=== PATIENT | female | born 1965 | race Caucasian/White ===

== ENCOUNTER 2020-03-25 05:25 | Emergency (ER) | payer OTHER ==
[~2020-03-25] VITALS: Ht 160 cm; Wt 63.5 kg
[2020-03-25] MEDS ORDERED: MORPHINE SULFATE 4 MG/ML SYR IVP ONE (05:30)
[2020-03-25] MEDS ORDERED: ONDANSETRON 4 MG/2 ML VIAL IVP ONE (05:30)
[2020-03-25 05:32] VITALS: BP 132/70
--- NOTE | 2020-03-25 05:46 | NUR ---
PT TAKEN TO BED 11
--- NOTE | 2020-03-25 05:48 | NUR ---
Dr. Osman examining patient.
[2020-03-25] MEDS ORDERED: LORazepam 1 MG TAB PO ONE (05:50)
--- NOTE | 2020-03-25 05:50 | NUR ---
55 Y/O FEMALE PRESENTS TO ER WITH C/O ANXIETY X 1 WEEK. 0/10 PAIN. PT STATES SHE HAD INSOMNIA, SHAKINESS, NEAR SYNCOPE, HYPERVENTILATING FOR THE PAST WEEK. DENIES SI/HI. DENIES NAUSEA, VOMITING, DIARRHEA, FEVER, CHILLS, COUGH. SIDE RAIL X1, BED IN LOW POSITION, WILL CONTINUE TO MONITOR PMH: THYROID CANCER; ANXIETY; ARTHRITIS; ACID REFLUX ALLERGY: SULFA DRUGS
[2020-03-25 06:56] VITALS: BP 132/70
--- NOTE | 2020-03-25 06:56 | NUR ---
Patient discharged BY DR. MILIAN with v/s stable. Written and verbal after care instructions given and explained. Patient alert, oriented and verbalized understanding of instructions. Ambulatory with steady gait. All questions addressed BY DR. MILIAN prior to discharge. ID band removed. Patient advised to follow up with PMD. Rx of given. Patient educated on indication of medication including possible reaction and side effects. Opportunity to ask questions provided and answered.
== END 2020-03-25 06:56 | disposition home or self-care (01) ==
LOC: MED 05:25
DX: F41.9 Anxiety disorder, unspecified (principal); E07.9 Disorder of thyroid, unspecified; Z85.850 Personal history of malignant neoplasm of thyroid
CPT/HCPCS: 99283

== ENCOUNTER 2023-09-09 02:50 | Emergency (ER) | payer BC ==
[~2023-09-09] VITALS: Ht 162.6 cm; Wt 72.6 kg
[2023-09-09 03:15] VITALS: BP 128/78; PULSE 73; RESP 17; TEMP 98.3; O2SAT 97
[2023-09-09] MEDS ORDERED: LORazepam 2 MG/ML VIAL IM ONE (04:45)
[2023-09-09] MEDS ORDERED: NAPR-54 PO (05:40)
[2023-09-09] MEDS ORDERED: ATI.5 PO (05:40)
[2023-09-09 05:50] VITALS: BP 128/78; PULSE 73; RESP 17; TEMP 98.3; O2SAT 97
== END 2023-09-09 05:50 | disposition home or self-care (01) ==
LOC: MED 02:50
DX: S76.012A Strain of muscle, fascia and tendon of left hip, initial encounter (principal); F41.9 Anxiety disorder, unspecified; Z79.899 Other long term (current) drug therapy; Z79.1 Long term (current) use of non-steroidal anti-inflammatories (NSAID); X50.1XXA Overexertion from prolonged static or awkward postures, initial encounter; Y93.89 Activity, other specified; Y92.89 Other specified places as the place of occurrence of the external cause; Y99.8 Other external cause status
CPT/HCPCS: 73502; 96372; 99283; J2060